=== PATIENT | female | born 1950 | race Caucasian/White ===

== ENCOUNTER 2018-11-03 14:32 | Inpatient (IN) | payer MEDICARE ==
[~2018-11-03] VITALS: Ht 157.5 cm; Wt 47.0 kg
[2018-11-03 16:11] LABS: AMPHET/METH SCREEN,URINE NEGATIVE (NEGATIVE); BARBITURATE SCREEN, URINE NEGATIVE (NEGATIVE); BENZODIAZEPINES SCREEN,URINE NEGATIVE (NEGATIVE); CANNABINOID SCREEN,URINE NEGATIVE (NEGATIVE); COCAINE SCREEN,URINE NEGATIVE (NEGATIVE); METHADONE SCREEN, URINE NEGATIVE (NEGATIVE); OPIATE SCREEN,URINE NEGATIVE (NEGATIVE)
[2018-11-03 16:12] LABS: BASOPHILS % (AUTO) 0.8 % (0.0-2.0); EOSINOPHILS % (AUTO) 2.8 % (1.0-6.0); HEMATOCRIT 43.3 % (36-46); HEMOGLOBIN 14.8 g/dL (12.0-16.0); LYMPHOCYTES # (AUTO) 2.6 K/uL (1.0-4.8); LYMPHOCYTES % (AUTO) 32.5 % (22.0-44.0); MEAN CORPUSCULAR HEMOGLOBIN 30.5 pg (26.0-34.0); MEAN CORPUSCULAR HGB CONC 34.2 G/dL (31.0-37.0); MEAN CORPUSCULAR VOLUME 89 fL (80-100); MONOCYTES # (AUTO) 0.6 K/uL (0.1-1.0); MONOCYTES % (AUTO) 7.8 % (2.0-9.0); NEUTROPHILS # (AUTO) 4.5 K/uL (1.8-7.7); NEUTROPHILS % (AUTO) 56.1 % (40.0-70.0); PLATELET COUNT (AUTO) 192 K/uL (150-450); RED BLOOD CELL COUNT(AUTO) 4.85 MIL/uL (4.00-5.20); RED CELL DISTRIBUTION WIDTH 13.2 % (11.5-14.5)
[2018-11-03 16:14] LABS: PHENCYCLIDINE SCREEN,URINE NEGATIVE (NEGATIVE)
[2018-11-03 16:46] LABS: ANION GAP 9 mmol/L (8-16); CARBON DIOXIDE 28 mmol/L (22-29); CHLORIDE 107 mmol/L (98-107); CREATININE 0.94 mg/dL (0.60-1.30); GLOMERULAR FILTR. RATE CALC 59 mL/min (>60); GLUCOSE,RANDOM 113 mg/dL (70-110); POTASSIUM 4.4 mmol/L (3.5-5.1); SODIUM SERUM 144 mmol/L (136-145); UREA NITROGEN, BLOOD 23 mg/dL (7-18)
[2018-11-03 16:53] LABS: ALANINE AMINOTRANSFERASE 20 U/L (12-78); ALBUMIN 3.7 g/dL (3.4-5.0); ALKALINE PHOSPHATASE 103 U/L (46-116); ASPARTATE AMINOTRANSFERASE 21 U/L (15-37); BILIRUBIN,TOTAL 0.2 mg/dL (0.1-1.0); TOTAL PROTEIN, SERUM 7.2 g/dL (6.4-8.2)
[2018-11-03] MEDS ORDERED: ZOLPIDEM TARTRATE 10 MG TABLET PO PRN (17:45)
[2018-11-03 19:40] LABS: APPEARANCE,URINE CLEAR (CLEAR); BILIRUBIN,URINE NEGATIVE (NEGATIVE); GLUCOSE, URINE (UA) NEGATIVE (NEGATIVE); KETONES,URINE NEGATIVE (NEGATIVE); LEUKOCYTE ESTERASE ,URINE SMALL (NEGATIVE); NITRATE,URINE NEGATIVE (NEGATIVE); OCCULT BLOOD,URINE NEGATIVE (NEGATIVE); PH,URINE 6.5 (5.0-8.0); PROTEIN,URINE NEGATIVE (NEGATIVE); UROBILINOGEN,URINE 0.2 mg/dL (<=1.0)
[2018-11-03 19:54] LABS: RBC,URINE 0-2 /HPF (0-2)
[2018-11-03 19:55] LABS: BACTERIA,URINE None Seen /HPF (None Seen); SQUAMOUS EPITHELIAL CELL,UR Rare /LPF (None Seen); TRANSITIONAL EPI CELLS,URINE Few /LPF (None Seen)
[2018-11-03 21:26] VITALS: BP 152/81
[2018-11-03] MEDS ORDERED: PNEUMOCOCCAL VACCINE POLYVALENT 0.5 ML VIAL [PPSV23] IM ONE (22:45)
[2018-11-03] MEDS ORDERED: IBUPROFEN 400 MG TABLET PO PRN (23:00)
[2018-11-03] MEDS ORDERED: DOCUSATE SODIUM 100 MG CAPSULE PO PRN (23:00)
[2018-11-03] MEDS ORDERED: MAG HYDROX/AL HYDROX/SIMETH ES 30 ML SUSPENSION UDCUP PO PRN (23:00)
[2018-11-03] MEDS ORDERED: LOPERAMIDE HCL 2 MG CAPSULE PO PRN (23:00)
[2018-11-03] MEDS ORDERED: MAGNESIUM HYDROXIDE SUSPENSION 30 ML UDCUP PO PRN (23:00)
[2018-11-03] MEDS ORDERED: CloNIDine HCL 0.1 MG TABLET PO PRN (23:00)
[2018-11-03] MEDS ORDERED: GuaiFENesin/D-METHORPHAN [SUGAR-FREE] 200-20MG/10 ML SYRUP UDCUP PO PRN (23:00)
[2018-11-03] MEDS ORDERED: ACETAMINOPHEN 325 MG TABLET PO PRN (23:00)
[2018-11-03] MEDS ORDERED: ONDANSETRON HCL 4 MG TABLET PO PRN (23:00)
[2018-11-03] MEDS ORDERED: PETROLATUM,WHITE 71 GM JELLY TP PRN (23:00)
[2018-11-03] MEDS ORDERED: ALBUTEROL SULFATE HFA 90 MCG/PUFF 8 GM INHALER IH PRN (23:00)
[2018-11-03] MEDS ORDERED: NICOTINE 14 MG/24 HOUR PATCH TD PRN (23:00)
[2018-11-04 02:53] VITALS: BP 130/78
[2018-11-04 07:06] LABS: HEMOGLOBIN A1C 5.6 % (4.5-6.2)
[2018-11-04 07:09] LABS: BILIRUBIN,TOTAL 0.5 mg/dL (0.1-1.0); CALCIUM, TOTAL 9.2 mg/dL (8.8-10.5); CREATININE 0.98 mg/dL (0.60-1.30); POTASSIUM 3.8 mmol/L (3.5-5.1)
[2018-11-04 07:10] LABS: ALBUMIN 3.7 g/dL (3.4-5.0); CHOL/HDL RATIO 2.6 (3.9-5.7); TOTAL PROTEIN, SERUM 7.4 g/dL (6.4-8.2)
[2018-11-04 07:18] LABS: FREE T4 (FREE THYROXINE) 0.8 ng/dL (0.76-1.46); THYROID STIMULATING HORMONE 7.38 uIU/mL (0.36-3.74)
[2018-11-04 08:25] VITALS: BP 130/93
[2018-11-04] MEDS: CEPHALEXIN MONOHYDRATE 250 MG CAPSULE PO SCH ×2 (09:42→16:44)
[2018-11-04] MEDS: LORazepam 2 MG TABLET PO PRN (10:38)
[2018-11-04] MEDS: HALOPERIDOL 5 MG TABLET PO PRN (10:38)
[2018-11-04 16:00] VITALS: BP 132/74
[2018-11-04] MEDS: DONEPEZIL HCL 10 MG TABLET PO SCH (20:16)
[2018-11-05] MEDS: LORazepam 2 MG TABLET PO PRN (09:14)
[2018-11-05] MEDS: CEPHALEXIN MONOHYDRATE 250 MG CAPSULE PO SCH ×2 (09:14→16:51)
[2018-11-05] MEDS: HALOPERIDOL 5 MG TABLET PO PRN (09:14)
[2018-11-05 14:00] VITALS: BP 133/76
[2018-11-05 19:05] VITALS: BP 123/91
[2018-11-05] MEDS: DONEPEZIL HCL 10 MG TABLET PO SCH (20:40)
[2018-11-06] MEDS: CEPHALEXIN MONOHYDRATE 250 MG CAPSULE PO SCH ×2 (10:11→16:11)
[2018-11-06 12:57] VITALS: BP 114/78
[2018-11-06 16:53] VITALS: BP 119/74
[2018-11-06] MEDS: DONEPEZIL HCL 10 MG TABLET PO SCH (21:00)
[2018-11-07] MEDS: CEPHALEXIN MONOHYDRATE 250 MG CAPSULE PO SCH ×2 (08:24→16:20)
[2018-11-07 12:34] VITALS: BP 127/94
[2018-11-07] MEDS: SERTRALINE HCL 50 MG TABLET PO SCH (16:18)
[2018-11-07] MEDS: DIVALPROEX SODIUM 125 MG DR TABLET PO SCH (16:21)
[2018-11-07 17:02] VITALS: BP 138/74
[2018-11-07] MEDS: DONEPEZIL HCL 10 MG TABLET PO SCH (20:39)
[2018-11-07] MEDS: DIVALPROEX SODIUM 250 MG DR TABLET PO SCH (20:39)
[2018-11-08 08:03] VITALS: BP 153/74
[2018-11-08] MEDS: CEPHALEXIN MONOHYDRATE 250 MG CAPSULE PO SCH ×2 (10:35→16:05)
[2018-11-08] MEDS: DIVALPROEX SODIUM 125 MG DR TABLET PO SCH ×2 (10:35→13:21)
[2018-11-08] MEDS: SERTRALINE HCL 50 MG TABLET PO SCH (10:35)
[2018-11-08] MEDS: LORazepam 2 MG TABLET PO PRN (13:51)
[2018-11-08 17:00] VITALS: BP 109/72
[2018-11-08] MEDS: DONEPEZIL HCL 10 MG TABLET PO SCH ×2 (20:32→21:00)
[2018-11-08] MEDS: DIVALPROEX SODIUM 250 MG DR TABLET PO SCH ×2 (20:32→21:00)
[2018-11-09] MEDS: CEPHALEXIN MONOHYDRATE 250 MG CAPSULE PO SCH ×2 (09:40→17:09)
[2018-11-09] MEDS: SERTRALINE HCL 50 MG TABLET PO SCH (09:40)
[2018-11-09] MEDS: DIVALPROEX SODIUM 125 MG DR TABLET PO SCH ×2 (09:41→12:27)
[2018-11-09 09:56] VITALS: BP 110/70
[2018-11-09 19:34] VITALS: BP 155/91
[2018-11-09] MEDS: DIVALPROEX SODIUM 250 MG DR TABLET PO SCH (20:41)
[2018-11-09] MEDS: DONEPEZIL HCL 10 MG TABLET PO SCH (20:41)
[2018-11-10] MEDS: DIVALPROEX SODIUM 125 MG DR TABLET PO SCH ×2 (08:53→12:36)
[2018-11-10] MEDS: CEPHALEXIN MONOHYDRATE 250 MG CAPSULE PO SCH ×2 (08:53→16:24)
[2018-11-10] MEDS: SERTRALINE HCL 50 MG TABLET PO SCH (08:53)
[2018-11-10 09:10] VITALS: BP 128/70
[2018-11-10] MEDS: DONEPEZIL HCL 10 MG TABLET PO SCH (20:21)
[2018-11-10] MEDS: DIVALPROEX SODIUM 250 MG DR TABLET PO SCH (20:21)
[2018-11-10 21:55] VITALS: BP 144/77
[2018-11-11 08:55] VITALS: BP 130/88
[2018-11-11] MEDS: DIVALPROEX SODIUM 125 MG DR TABLET PO SCH ×2 (10:09→13:02)
[2018-11-11] MEDS: SERTRALINE HCL 50 MG TABLET PO SCH (10:09)
[2018-11-11] MEDS ORDERED: DIVA-76 PO (12:08)
[2018-11-11] MEDS ORDERED: SERT50TA12 PO (12:08)
[2018-11-11] MEDS ORDERED: DIVA125T32 PO ×2 (12:08)
[2018-11-11] MEDS ORDERED: DONE10TA8 PO (12:49)
== END 2018-11-11 13:45 | disposition home or self-care (01) | DRG 885 ==
LOC: EMS 14:34 → 3EI 19:32
DX: F20.0 Paranoid schizophrenia (principal); F03.91 Unspecified dementia, unspecified severity, with behavioral disturbance; N39.0 Urinary tract infection, site not specified; E03.9 Hypothyroidism, unspecified; E11.9 Type 2 diabetes mellitus without complications; E78.5 Hyperlipidemia, unspecified; E78.00 Pure hypercholesterolemia, unspecified; I10 Essential (primary) hypertension; Z79.899 Other long term (current) drug therapy
CPT/HCPCS: 83036; 84436; 84439; 84443; 87086; G0480